=== PATIENT | male | born 1965 | race Caucasian/White ===

== ENCOUNTER 2019-05-23 06:11 | Emergency (ER) | payer MEDICARE, OTHER ==
[~2019-05-23] VITALS: Ht 172.7 cm; Wt 59.0 kg
[~2019-05-23 06:11] MED LIST: Bactrim Ds Tab1 EACH PO; CEPH500 PO
== END 2019-05-23 06:36 | disposition home or self-care (01) ==
LOC: ER 06:11
DX: L03.011 Cellulitis of right finger (principal); Z91.14 Patient's other noncompliance with medication regimen; Z87.891 Personal history of nicotine dependence
CPT/HCPCS: 99283